=== PATIENT | male | born 1995 | race Caucasian/White ===

== ENCOUNTER 2019-01-11 18:40 | Emergency (ER) | payer OTHER ==
[~2019-01-11] VITALS: Ht 177.8 cm; Wt 84.1 kg
[~2019-01-11 18:40] MED LIST: NO HOME MEDICATIONS
[2019-01-11 18:51] VITALS: BP 170/85; TEMP 99.4
[2019-01-11 20:19] VITALS: PULSE 83
== END 2019-01-11 20:19 | disposition home or self-care (01) ==
LOC: COL.ER 18:40
DX: J02.9 Acute pharyngitis, unspecified (principal); F17.220 Nicotine dependence, chewing tobacco, uncomplicated
CPT/HCPCS: J0561; J8540

== ENCOUNTER 2019-05-10 18:16 | Emergency (ER) | payer OTHER ==
[~2019-05-10] VITALS: Ht 177.8 cm; Wt 86.4 kg
[2019-05-10 19:35] LABS: HEMATOCRIT 47.5 % (42.0-52.0); MEAN CELL VOLUME 90 fl (80.0-100.0); MEAN CORPUSCULAR HEMOGLOBIN 30 pg (27.0-31.0); MEAN CORPUSCULAR HGB CONC 34 g/dl (33.0-37.0); MEAN PLATELET VOLUME 10.1 fl (7.4-10.4); PLATELET COUNT 230 K/mm3 (130-400); RED BLOOD COUNT 5.26 M/mm3 (4.20-5.60); REDCELL DISTRIBUTION WIDTH-CV 12.5 % (11.5-14.5)
[2019-05-10 19:40] LABS: ALBUMIN 4.2 gm/dL (3.5-5.0); BILIRUBIN,TOTAL 0.6 mg/dL (0.0-1.0); CREATININE, serum 0.76 (0.66-1.25); POTASSIUM 3.8 mmol/L (3.4-5.0); TOTAL PROTEIN 7.9 gm/dL (6.4-8.2)
[2019-05-10 19:41] VITALS: TEMP 99.8
[2019-05-10 19:57] LABS: COLLECTION METHOD CLEAN CATCH
[2019-05-10 20:05] LABS: MUCOUS Present /lpf; PH 5 (5-8); SQUAMOUS EPITHELIAL 0-2 /hpf; URINE APPEARANCE Clear; URINE BACTERIA None Seen /hpf; URINE BILIRUBIN Negative (NEGATIVE); URINE BLOOD Negative (NEGATIVE); URINE COLOR Yellow; URINE GLUCOSE Negative (NEGATIVE); URINE KETONE Negative (NEGATIVE); URINE LEUKOCYTE ESTERASE Negative (NEGATIVE); URINE NITRATE Negative (NEGATIVE); URINE PROTEIN(semi-quant) 1+ (NEGATIVE); URINE UROBILINOGEN Negative (NEGATIVE)
[2019-05-10 20:11] LABS: BAND 11 % (0-10); LYMPHOCYTE 7 % (20.0-51.0); NEUTROPHILS 66 % (42.0-75.2); PLATELET ESTIMATE NORMAL (NORMAL)
[2019-05-10 21:13] LABS: CSF APPEARANCE HAZY; CSF COLOR COLORLESS; CSF RBC 3200 /mm3 (0-0)
[2019-05-10 21:18] LABS: CSF MONONUCLEAR 25 % (70-100); CSF POLYMORPHONUCLEAR 75 % (0-6)
[2019-05-10 21:41] VITALS: BP 128/76; PULSE 92
== END 2019-05-10 21:48 | disposition home or self-care (01) ==
LOC: COL.ER 18:16
PROVIDERS: Family Medicine
DX: R51 Headache (principal); B34.9 Viral infection, unspecified
CPT/HCPCS: J1885; J7030